=== PATIENT | male | born 1960 | race Caucasian/White ===

== ENCOUNTER 2016-08-15 05:49 | Day surgery (SDC) | payer BC ==
--- NOTE | ~2016-08-15 | EGD ---
EGD REPORT [facility] [address] [place]. [address] NAME: PRESTON RUSSELL : 60 [place] [facility] [place] [id number] AGE: 56 ADM/REG DATE : 08/15/16 MR#: [id number] REPORT SERV DATE: 08/15/16 DICTATED BY: AURELIO GARCIA DATE: 08/15/16 REPORT STATUS : Draft [facility]ANSCRIBED [facility]: [facility] DATE: 08/15/16 Endoscopy Center Patient Name: Preston Russell Date of : 1960 Attending MD: AURELIO GARCIA MD Procedure Date No Time: 08/15/2016 Procedure: Colonoscopy Indications: Screening for colorectal malignant neoplasm; average risk; index exam. Patient Profile: Informed consent was obtained from the patient by me prior to the procedure. Risks, benefits, and alternatives were discussed including the risk of bleeding, perforation, infection, reaction to medicine, missed lesion, and cardiopulmonary complications. Referring MD: CORNELIO MEZA Medicines: Monitored Anesthesia Care Complications: No immediate complications. Procedure: After I obtained informed consent, the scope was passed under direct vision. Throughout the procedure, the patient's blood pressure, pulse, and oxygen saturations were monitored continuously. The PCF H190L [id number] was introduced through the anus and advanced to the cecum, identified by appendiceal orifice and ileocecal valve. The colonoscope was slowly withdrawn with careful examination all mucosal surfaces including specific attention around flexures and tip deflection behind folds; retroflexion performed in rectum. The colonoscopy was performed without difficulty. The patient tolerated the procedure well. The quality of the bowel preparation was adequate. The ileocecal valve, appendiceal orifice and rectum were photographed. Findings: The terminal ileum appeared normal. A flat polyp was found in the cecum. The polyp was 7 mm in size. The polyp was removed with a cold biopsy forceps. The polyp was removed with a cold snare. Resection and retrieval were complete. A few small-mouthed diverticula were found in the sigmoid colon. Internal hemorrhoids were found, and they were mild. Impression: - The examined portion of the ileum was normal. - One 7 mm polyp in the cecum. Resected and retrieved. - Diverticulosis in the sigmoid colon. - Internal hemorrhoids. EGD REPORT [address] [address] NAME: PRESTON RUSSELL : [birth year] STATUS : REG [facility]#: [id number] AGE: 56 ADM/REG DATE : 08/15/16 MR#: [id number] REPORT SERV DATE: 08/15/16 DICTATED BY: AURELIO GARCIA DATE: 08/15/16 REPORT STATUS : Draft TRANSCRIBED BY: [employer] DATE: 08/15/16 Recommendation: - Patient has a contact number available for emergencies. The signs and symptoms of potential delayed complications were discussed with the patient. Return to normal activities tomorrow. Written discharge instructions were provided to the patient. - Regular diet. - Continue present medications. - Await pathology results. - Repeat colonoscopy for surveillance based on pathology results. Procedure Code(s): --- Professional --- 73389, Colonoscopy, flexible, proximal to splenic flexure; with removal of tumor(s), polyp(s), or other lesion(s) by snare technique Diagnosis Code(s): --- Professional --- K64.8, Other hemorrhoids K57.30, Diverticulosis of large intestine without perforation or abscess without bleeding D12.0, Benign neoplasm of cecum Z12.11, Encounter for screening for malignant neoplasm of colon CPT copyright 2013 [employer]. All rights reserved. The codes documented in this report are preliminary and upon equipment validation engineer review may be revised to meet current compliance requirements. AURELIO GARCIA MD 08/15/2016 7:54 AM This report has been signed electronically. Number of Addenda: 0 Note Initiated On: 08/15/2016 7:08 AM Scope Withdrawal Time 0 hours 12 minutes 23 seconds [id number] [place] [id number]
--- NOTE | ~2016-08-15 | EGD ---
EGD REPORT [facility] [address] [place] [address] NAME: PRESTON RUSSELL : 60 STATUS : REG [facility] [place] PAT#: [id number] AGE: 56 ADM/REG DATE : 08/15/16 MR#: [id number] REPORT SERV DATE: 08/15/16 DICTATED BY: AURELIO GARCIA DATE: 08/15/16 REPORT STATUS : Draft [facility]ANSCRIBED BY: [facility] DATE: 08/15/16 Endoscopy Center Patient Name: Preston Russell Date of : 1960 Attending MD: AURELIO GARCIA MD Procedure Date No Time: 08/15/2016 Procedure: Upper GI endoscopy Indications: Heartburn; Prilosec 20mg daily. Patient Profile: Informed consent was obtained from the patient by me prior to the procedure. Risks, benefits, and alternatives were discussed including the risk of bleeding, perforation, infection, reaction to medicine, missed lesion, and cardiopulmonary complications. Referring MD: CORNELIO MEZA Medicines: Monitored Anesthesia Care Complications: No immediate complications. Procedure: After obtaining informed consent, the endoscope was passed under direct vision. Throughout the procedure, the patient's blood pressure, pulse, and oxygen saturations were monitored continuously. The GIF H190 [id number] was introduced through the mouth, and advanced to the third part of duodenum. The endoscope was withdrawn with careful examination all mucosal surfaces including retroflexion stomach. The upper GI endoscopy was accomplished without difficulty. The patient tolerated the procedure well. Findings: The 3rd part of the duodenum was normal. The first part of the duodenum and 2nd part of the duodenum were normal. Biopsies were taken with a cold forceps for histology. Diffuse mildly erythematous mucosa was found in the gastric antrum. Biopsies were taken with a cold forceps for histology. The gastric body was normal. Biopsies were taken with a cold forceps for histology. The cardia and gastric fundus were normal. The esophagus and gastroesophageal junction were examined with white light. There was no visual evidence of Gonsalez's esophagus. LA Grade A (one or more mucosal breaks less than 5 mm, not extending between tops of 2 mucosal folds) esophagitis was found, no nodules. The examined esophagus was normal. Impression: - Normal 3rd part of the duodenum. - Normal first part of the duodenum and 2nd part of the duodenum. Biopsied. EGD REPORT [facility] [address] [place]. [address] NAME: PRESTON RUSSELL : [birth year] STATUS : REG [facility] [place] PAT#: [id number] AGE: 56 ADM/REG DATE : 08/15/16 MR#: [id number] REPORT SERV DATE: 08/15/16 DICTATED BY: AURELIO GARCIA DATE: 08/15/16 REPORT STATUS : Draft TRANSCRIBED BY: [employer] DATE: 08/15/16 - Erythematous mucosa in the antrum. Biopsied. - Normal gastric body. Biopsied. - Normal cardia and gastric fundus. - There is no endoscopic evidence of Gonsalez's esophagus. - LA Grade A reflux esophagitis. - Normal esophagus. Recommendation: - Patient has a contact number available for emergencies. The signs and symptoms of potential delayed complications were discussed with the patient. Return to normal activities tomorrow. Written discharge instructions were provided to the patient. - Regular diet. - Continue present medications. - Await pathology results. - Increase Prilosec to 20mg bid. - Schd 4hr GET re: weight loss, early satiety, GERD. Procedure Code(s): --- Professional --- 50683, Esophagogastroduodenoscopy, flexible, transoral; with biopsy, single or multiple Diagnosis Code(s): --- Professional --- K31.9, Disease of stomach and duodenum, unspecified K21.0, Gastro-esophageal reflux disease with esophagitis R12, Heartburn CPT copyright 2013 [employer]. All rights reserved. The codes documented in this report are preliminary and upon service car driver review may be revised to meet current compliance requirements. AURELIO GARCIA MD 08/15/2016 7:26 AM This report has been signed electronically. Number of Addenda: 0 Note Initiated On: 08/15/2016 7:09 AM Scope Withdrawal Time 0 hours 0 minutes 0 seconds [id number] [id number]
--- NOTE | ~2016-08-15 | EGD ---
EGD REPORT [facility] [address] [place] [address] NAME: PRESTON RUSSELL : 60 STATUS : [facility] [place] PAT#: [id number] AGE: 56 ADM/REG DATE : 08/15/16 MR#: [id number] REPORT SERV DATE: 08/15/16 DICTATED BY: AURELIO GARCIA DATE: 08/15/16 REPORT STATUS : Draft [facility]ANS[facility]IB[facility]: [facility] DATE: 08/15/16 Endoscopy Center Patient Name: Preston Russell Date of : 1960 Attending MD: AURELIO GARCIA MD Procedure Date No Time: 08/15/2016 Procedure: Colonoscopy Indications: Screening for colorectal malignant neoplasm; average risk; index exam. Patient Profile: Informed consent was obtained from the patient by me prior to the procedure. Risks, benefits, and alternatives were discussed including the risk of bleeding, perforation, infection, reaction to medicine, missed lesion, and cardiopulmonary complications. Referring MD: CORNELIO MEZA Medicines: Monitored Anesthesia Care Complications: No immediate complications. Procedure: After I obtained informed consent, the scope was passed under direct vision. Throughout the procedure, the patient's blood pressure, pulse, and oxygen saturations were monitored continuously. The PCF H190L [id number] was introduced through the anus and advanced to the cecum, identified by appendiceal orifice and ileocecal valve. The colonoscope was slowly withdrawn with careful examination all mucosal surfaces including specific attention around flexures and tip deflection behind folds; retroflexion performed in rectum.The colonoscopy was performed without difficulty. The patient tolerated the procedure well. The quality of the bowel preparation was adequate. The ileocecal valve, appendiceal orifice and rectum were photographed. Findings: The terminal ileum appeared normal. A flat polyp was found in the cecum. The polyp was 7 mm in size. The polyp was removed with a cold biopsy forceps. The polyp was removed with a cold snare. Resection and retrieval were complete. A few small-mouthed diverticula were found in the sigmoid colon. Internal hemorrhoids were found, and they were mild. Impression: - The examined portion of the ileum was normal. - One 7 mm polyp in the cecum. Resected and retrieved. - Diverticulosis in the sigmoid colon. - Internal hemorrhoids. EGD REPORT [address] [address] NAME: PRESTON RUSSELL : 60 STATUS : REG [facility]#: [id number] AGE: 56 ADM/REG DATE : 08/15/16 MR#: [id number] REPORT SERV DATE: 08/15/16 DICTATED BY: AURELIO GARCIA DATE: 08/15/16 REPORT STATUS : Draft TRANSCRIBED BY: [employer] DATE: 08/15/16 Recommendation: - Patient has a contact number available for emergencies. The signs and symptoms of potential delayed complications were discussed with the patient. Return to normal activities tomorrow. Written discharge instructions were provided to the patient. - Regular diet. - Continue present medications. - Await pathology results. - Repeat colonoscopy for surveillance based on pathology results. Procedure Code(s): --- Professional --- 95041, Colonoscopy, flexible, proximal to splenic flexure; with removal of tumor(s), polyp(s), or other lesion(s) by snare technique Diagnosis Code(s): --- Professional --- K64.8, Other hemorrhoids K57.30, Diverticulosis of large intestine without perforation or abscess without bleeding D12.0, Benign neoplasm of cecum Z12.11, Encounter for screening for malignant neoplasm of colon CPT copyright 2013 [place] [employer]. All rights reserved. The codes documented in this report are preliminary and upon slip seat coverer review may be revised to meet current compliance requirements. AURELIO GARCIA MD 08/15/2016 7:54 AM This report has been signed electronically. Number of Addenda: 0 Note Initiated On: 08/15/2016 7:08 AM Scope Withdrawal Time 0 hours 12 minutes 23 seconds [id number] [place] [address]
[~2016-08-15 05:49] MED LIST: ACET500CAP PO; OTC SLEEP AID PO; PRILOSEC OTC20 MG PO; SYMBICORT 160/41 INH INH
== END 2016-08-15 23:59 | disposition home or self-care (01) ==
LOC: DMU 05:49
PROVIDERS: Internal Medicine Gastroenterology
PROC: 0DBH8ZZ Excision of Cecum, Via Natural or Artificial Opening Endoscopic (ICD-10-PCS; principal; 2016-08-15 07:00)
PROC: 0DB98ZX Excision of Duodenum, Via Natural or Artificial Opening Endoscopic, Diagnostic (ICD-10-PCS; 2016-08-15 07:00)
PROC: 0DB68ZX Excision of Stomach, Via Natural or Artificial Opening Endoscopic, Diagnostic (ICD-10-PCS; 2016-08-15 07:00)
DX: Z12.11 Encounter for screening for malignant neoplasm of colon (principal); K29.80 Duodenitis without bleeding; K63.5 Polyp of colon; K57.30 Diverticulosis of large intestine without perforation or abscess without bleeding; K64.8 Other hemorrhoids; K21.0 Gastro-esophageal reflux disease with esophagitis; J44.9 Chronic obstructive pulmonary disease, unspecified; F17.210 Nicotine dependence, cigarettes, uncomplicated; Z79.899 Other long term (current) drug therapy; Z98.890 Other specified postprocedural states
CPT/HCPCS: 88305